=== PATIENT | male | born 1990 | race Caucasian/White ===

== ENCOUNTER 2017-09-08 18:54 | Emergency (ER) | payer MEDICAID ==
[2017-09-08] MEDS ORDERED: Sodium Chloride 0.9% 1,000 ML IV ONE (20:39)
[2017-09-08] MEDS ORDERED: Sucralfate 1 gm/10 ml Oral Susp UD PO STA (20:41)
--- NOTE | 2017-09-08 20:42 | C.PDOC ---
History Of Present Illness 26 year old male presents to the ER with a complaints of epigastric pain since this morning, associated with mild diaphoresis. Patient reports he has a Hx of chronic alcoholism, last drink was last night. Denies fever, chills, or SOB. Chief Complaint (Nursing): Substance Abuse History Per: Patient History/Exam Limitations: no limitations Onset/Duration Of Symptoms: Hrs Current Symptoms Are (Timing): Still Present Suicide/Self Injury Attempted (Context): None Associated Symptoms: denies: Depression, Suicidal Thoughts, Suicidal Plan Involuntary Hold By: None Recent travel outside of the [place]: No Past Medical History Reviewed: Historical Data, Nursing Documentation, Vital Signs Vital Signs: Last Vital Signs Temp 98.3 F 09/08/17 21:25 Pulse 104 H 09/08/17 21:25 Resp 20 09/08/17 21:25 BP 144/95 H 09/08/17 21:25 Pulse Ox 100 09/08/17 21:25 - Medical History PMH: Anxiety Surgical History: Appendectomy, Tonsillectomy Family History: States: Unknown Family Hx - Social History Hx Alcohol Use: Yes Hx Substance Use: No - Immunization History Hx Tetanus Toxoid Vaccination: No Hx Influenza Vaccination: No Hx Pneumococcal Vaccination: No Review Of Systems Constitutional: Positive for: Sweats. Negative for: Fever, Chills Cardiovascular: Negative for: Chest Pain, Palpitations Respiratory: Negative for: Shortness of Breath Gastrointestinal: Positive for: Abdominal Pain. Negative for: Nausea, Vomiting Physical Exam - Physical Exam Appears: Non-toxic, Other (Alert, Conscious) Skin: Normal Color, Warm, Dry Head: Atraumatic, Normacephalic Eye(s): bilateral: Normal Inspection Oral Mucosa: Moist Neck: Normal, Supple Chest: Symmetrical, No Tenderness Cardiovascular: Rhythm Regular Respiratory: Normal Breath Sounds, No Rales, No Rhonchi, No Wheezing Gastrointestinal/Abdominal: Soft, Tenderness (Mild epigastric), No Guarding, No Rebound Neurological/Psych: Oriented x3, Normal Speech, Other (No tremors noted) ED Course And Treatment - Laboratory Results Result Diagrams: 09/08/17 20:53 09/08/17 20:53 O2 Sat by Pulse Oximetry: 99 (Room air) Pulse Ox Interpretation: Normal Progress Note: Blood work and urinalysis ordered. Carafate, pepcid, and IV fluids administered. Disposition Counseled Patient/Family Regarding: Diagnosis - Disposition Referrals: [facility] [Outside] Disposition Time: 22:11 Condition: STABLE Prescriptions: Famotidine [Pepcid] 20 mg PO BID #20 tab Instructions: Abuse of Alcohol (ED), Gastritis (GEN) Forms: [employer] (Bulgarian) - POA Present On Arrival: None - Clinical Impression Clinical Impression: Gastritis, Alcohol abuse - Scribe Statement The provider has reviewed the documentation as recorded by the Scribmisa Montes All medical record entries made by the Jaimeeibmisa were at my direction and personally dictated by me. I have reviewed the chart and agree that the record accurately reflects my personal performance of the history, physical exam, medical decision making, and the department course for this patient. I have also personally directed, reviewed, and agree with the discharge instructions and disposition.
[2017-09-08] MEDS ORDERED: Sodium Chloride 0.9% 1,000 ML ONE (20:57)
[2017-09-08] MEDS ORDERED: Sucralfate 1 gm/10 ml Oral Susp UD ONE (20:57)
[2017-09-08 21:05] LABS: BASO # 0.1 K/uL (0.0-0.2); BASO % 0.7 % (0.0-2.0); EOS # 0.2 K/uL (0.0-0.7); HEMOGLOBIN 15.8 g/dL (12.0-18.0); LYMPH # 1.6 K/uL (1.0-4.3); MEAN CELL VOLUME 94.4 fL (80.0-94.0); MEAN CORPUSCULAR HEMOGLOBIN 32.8 pg (27.0-31.0); MEAN CORPUSCULAR HGB CONC 34.8 g/dL (33.0-37.0); MEAN PLATELET VOLUME 9.3 fL (7.2-11.7); MONO % 11.3 % (0.0-10.0); NEUT # 5.9 K/uL (1.8-7.0); RBC 4.8 Mil/uL (4.40-5.90); RED CELL DISTRIBUTION WIDTH 13.6 % (11.5-14.5); WHITE BLOOD COUNT 8.7 K/uL (4.8-10.8)
[2017-09-08 21:12] LABS: URINE BILIRUBIN NEGATIVE (NEGATIVE); URINE BLOOD NEGATIVE (NEGATIVE); URINE CLARITY Clear (Clear); URINE COLOR Yellow (YELLOW); URINE GLUCOSE (UA) NORMAL (Normal); URINE LEUKOCYTE ESTERASE NEG Leu/uL (Negative); URINE NITRATE NEGATIVE (NEGATIVE); URINE PROTEIN NEGATIVE (NEGATIVE); URINE UROBILINOGEN NORMAL mg/dL (0.2-1.0)
[2017-09-08 21:12] LABS: ALB/GLOB RATIO 1.4 (1.0-2.1); ALBUMIN 4.2 g/dL (3.5-5.0); ALT/SGPT 32 U/L (21-72); AST/SGOT 26 U/L (17-59); BLOOD UREA NITROGEN 12 mg/dL (9-20); GFR AFRICAN-AMERICAN > 60; GFR NON-AFRICAN AMERICAN > 60; LIPASE 88 U/L (23-300)
[2017-09-08 21:29] LABS: BARBITURATES, UR NEGATIVE (NEGATIVE); BENZODIAZEPINES, UR NEGATIVE (NEGATIVE); OPIATES, UR NEGATIVE (NEGATIVE); PHENCYCLIDINE, UR NEGATIVE (NEGATIVE)
[2017-09-08 21:54] VITALS: RESP 20
[2017-09-08 22:42] VITALS: BP 124/86; PULSE 88; TEMP 98.9; O2SAT 100
== END 2017-09-08 22:44 | disposition home or self-care (01) ==
LOC: C.ER 18:54
DX: K29.70 Gastritis, unspecified, without bleeding (principal); F10.10 Alcohol abuse, uncomplicated; Y90.0 Blood alcohol level of less than 20 mg/100 ml
CPT/HCPCS: 80053; 80320; 80324; 80345; 80346; 80349; 80353; 80358; 80361; 81001; 83690; 83992; 85025; 96374; 99284; J7040

== ENCOUNTER 2017-09-12 03:47 | Emergency (ER) | payer MEDICAID ==
[2017-09-12] MEDS ORDERED: Sodium Chloride 0.9% 1,000 ML IV ONE (04:24)
[2017-09-12] MEDS ORDERED: Iohexol 240 (50 ml) PO ONE (04:28)
--- NOTE | 2017-09-12 04:28 | C.PDOC ---
Chief Complaint (Nursing): Male Genitourinary Past Medical History Vital Signs: Last Vital Signs Temp 97.9 F 09/12/17 04:05 Pulse 85 09/12/17 04:05 Resp 18 09/12/17 04:05 BP 106/70 09/12/17 04:05 Pulse Ox 100 09/12/17 04:05 - Medical History PMH: Anxiety Denies: Diabetes, Hepatitis, HIV, HTN, Chronic Kidney Disease, Seizures, Sexually Transmitted Disease Surgical History: Appendectomy, Tonsillectomy Family History: States: Unknown Family Hx - Social History Hx Alcohol Use: Yes Hx Substance Use: No - Immunization History Hx Tetanus Toxoid Vaccination: No Hx Influenza Vaccination: No Hx Pneumococcal Vaccination: No ED Course And Treatment O2 Sat by Pulse Oximetry: 100 Disposition - Disposition
--- NOTE | 2017-09-12 04:29 | C.PDOC ---
History Of Present Illness <Adan Avitia R - Last Filed: 09/12/17 04:26> <KitaponchoTawanda E - Last Filed: 09/12/17 08:42> 26 y/o male brought in by ambulance for abdominal pain. Patient has a history of abdominal pain and was seen 4 days ago for gastritis. Now complaining of right-sided flank pain, radiating to groin. Associated with dysuria. No hematuria. Patient vomiting in the ER. (AvitiaAdan Moore) History Per: Patient History/Exam Limitations: no limitations Onset/Duration Of Symptoms: Hrs Current Symptoms Are (Timing): Still Present <Adan Avitia R - Last Filed: 09/12/17 04:26> <Tawanda Trammell E - Last Filed: 09/12/17 08:42> Time Seen by Provider: 09/12/17 04:20 Chief Complaint (Nursing): Male Genitourinary Past Medical History Reviewed: Historical Data, Nursing Documentation, Vital Signs - Medical History PMH: Anxiety Denies: Diabetes, Hepatitis, HIV, HTN, Chronic Kidney Disease, Seizures, Sexually Transmitted Disease Surgical History: Appendectomy, Tonsillectomy Family History: States: Unknown Family Hx - Social History Hx Alcohol Use: Yes Hx Substance Use: No - Immunization History Hx Tetanus Toxoid Vaccination: No Hx Influenza Vaccination: No Hx Pneumococcal Vaccination: No <Adan Avitia - Last Filed: 09/12/17 04:26> Vital Signs: Last Vital Signs Temp 97.6 F 09/12/17 08:12 Pulse 87 09/12/17 08:12 Resp 18 09/12/17 08:12 BP 128/87 09/12/17 08:12 Pulse Ox 98 09/12/17 08:12 Review Of Systems Constitutional: Negative for: Fever Gastrointestinal: Positive for: Vomiting, Abdominal Pain (right flank) Genitourinary: Positive for: Dysuria, Frequency. Negative for: Hematuria <Adan Avitia - Last Filed: 09/12/17 04:26> Physical Exam - Physical Exam Appears: Non-toxic, No Acute Distress Skin: Normal Color, Warm, Dry Head: Atraumatic, Normacephalic Eye(s): bilateral: Normal Inspection, PERRL, EOMI Oral Mucosa: Moist Neck: Normal ROM, Supple Chest: Symmetrical Cardiovascular: Rhythm Regular, No Murmur Respiratory: Normal Breath Sounds, No Accessory Muscle Use Gastrointestinal/Abdominal: Soft, Tenderness (to right-sided abdomen), No Guarding, No Rebound Back: Normal Inspection Extremity: Bilateral: Atraumatic, Normal Color And Temperature, Normal ROM Neurological/Psych: Oriented x3, Normal Speech <Adan Avitia - Last Filed: 09/12/17 04:26> ED Course And Treatment O2 Sat by Pulse Oximetry: 100 (RA) Pulse Ox Interpretation: Normal <SadiAdan Oscar - Last Filed: 09/12/17 04:26> - Laboratory Results Result Diagrams: 09/12/17 04:44 09/12/17 04:44 Lab Interpretation: No Acute Changes - CT Scan/US CT abd/pelv. Other Rad Studies (CT/US): Read By Radiologist, Radiology Report Reviewed CT/US Interpretation: IMPRESSION: Small calculus at or just medial to right ureteral orifice. Progress Note: Pt was signed out to me by Dr. Avitia at 7am to f/up CT scan. Pt feels better and wants to go home. Reassessment Condition: Improved <Tawanda Trammell E - Last Filed: 09/12/17 08:42> Medical Decision Making <Adan Avitia Oscar - Last Filed: 09/12/17 04:26> <Tawanda Trammell E - Last Filed: 09/12/17 08:42> Medical Decision Makin:[address] Abd/Pelvis, urine, and blood work. Patient given IV fluids, Toradol and Zofran. (Adan Avitia) Disposition <Adan Avitia - Last Filed: 09/12/17 04:26> Counseled Patient/Family Regarding: Studies Performed, Diagnosis, Need For Followup, Rx Given - Disposition Disposition Time: 08:38 <Tawanda Trammell E - Last Filed: 09/12/17 08:42> - Disposition Referrals: Nestor Cuello MD [Staff Provider] - Disposition: HOME/ ROUTINE Condition: IMPROVED Additional Instructions: Drink plenty of fluids. Follow up with a Urologist for further evaluation and treatment. Return to the ER if you develop fever, not tolerating fluids, worsening of symptoms or if you have any other concerns. Prescriptions: Ibuprofen [Motrin Tab] 600 mg PO Q8 PRN #30 tab PRN Reason: Pain, Moderate (4-7) oxyCODONE/Acetaminophen [Percocet 5/325 mg Tab] 1 tab PO QID PRN #15 tab PRN Reason: Pain, Severe (8-10) Tamsulosin [Flomax] 0.4 mg PO HS #5 cap Instructions: Renal Colic (ED) Forms: [employer] (Luxembourgish) - Clinical Impression Clinical Impression: Right ureteral calculus - Scribe Statement The provider has reviewed the documentation as recorded by the Scribe <Adan Avitia - Last Filed: 09/12/17 04:26> <Tawanda Trammell - Last Filed: 09/12/17 08:42> - Scribe Statement Luda Esquivel (Adan Avitia) Provider Attestation: All medical record entries made by the Scribe were at my direction and personally dictated by me. I have reviewed the chart and agree that the record accurately reflects my personal performance of the history, physical exam, medical decision making, and the department course for this patient. I have also personally directed, reviewed, and agree with the discharge instructions and disposition. (Adan Avitia)
[2017-09-12] MEDS ORDERED: Sodium Chloride 0.9% 1,000 ML ONE (04:42)
[2017-09-12] MEDS ORDERED: Iohexol 240 (50 ml) ONE (04:42)
[2017-09-12 04:54] LABS: BASO % 0.3 % (0.0-2.0); EOS # 0.4 K/uL (0.0-0.7); HEMOGLOBIN 15.5 g/dL (12.0-18.0); LYMPH # 3.1 K/uL (1.0-4.3); MEAN CELL VOLUME 94.2 fL (80.0-94.0); MEAN CORPUSCULAR HEMOGLOBIN 32.9 pg (27.0-31.0); MEAN CORPUSCULAR HGB CONC 34.9 g/dL (33.0-37.0); MONO # 0.9 K/uL (0.0-0.8); MONO % 9.1 % (0.0-10.0); NEUT % 53.6 % (50.0-75.0); NRBC % 0.2 % (0.0-2.0); RBC 4.7 Mil/uL (4.40-5.90); RED CELL DISTRIBUTION WIDTH 13.6 % (11.5-14.5); WHITE BLOOD COUNT 9.4 K/uL (4.8-10.8)
[2017-09-12 05:17] LABS: BLOOD UREA NITROGEN 12 mg/dL (9-20); CALCIUM 8.7 mg/dl (8.6-10.4); GFR AFRICAN-AMERICAN > 60; GFR NON-AFRICAN AMERICAN > 60
[2017-09-12 05:18] LABS: ALB/GLOB RATIO 1.4 (1.0-2.1); ALT/SGPT 23 U/L (21-72); AST/SGOT 22 U/L (17-59); LIPASE 67 U/L (23-300)
[2017-09-12 06:19] VITALS: TEMP 97.6; O2SAT 98
[2017-09-12] MEDS ORDERED: Iodixanol 320 MG/ML 100 ML BOTTLE IV ONE (06:35)
--- NOTE | 2017-09-12 07:46 | CT ---
EXAM: CT Abdomen and Pelvis With Intravenous Contrast EXAM DATE/TIME: 09/12/2017 4:27 AM CLINICAL HISTORY: 26 years old, male; Pain; Other: Right sided; Patient HX: Abd pain; Additional info: Right sided abd pain TECHNIQUE: Axial computed tomography images of the abdomen and pelvis with intravenous contrast. All CT scans at this facility use one or more dose reduction techniques, viz.: automated exposure control; ma/kV adjustment per patient size (including targeted exams where dose is matched to indication; i.e. head); or iterative reconstruction technique. Coronal and sagittal reformatted images were created and reviewed. CONTRAST: 100 mL of VISIPAQUE 320 administered intravenously. COMPARISON: No relevant prior studies available. FINDINGS: Lower thorax: No acute findings. ABDOMEN: Liver: Unremarkable. No mass. Gallbladder and bile ducts: Unremarkable. No calcified stones. No ductal dilation. Pancreas: Unremarkable. No mass. No ductal dilation. Spleen: Unremarkable. No splenomegaly. Adrenals: Unremarkable. No mass. Kidneys and ureters: No hydronephrosis. Symmetrical nephrograms. 1 cm right upper pole cyst. Stomach and bowel: Unremarkable. No dilatation of small or large bowel. No mucosal thickening. Appendix: Normal. PELVIS: Bladder: 3 mm calculus at or just medial to right ureteral orifice. No mass. Reproductive: Unremarkable as visualized. ABDOMEN and PELVIS: Intraperitoneal space: Unremarkable. No free air. No significant fluid collection. Bones/joints: No acute fracture. Soft tissues: Unremarkable. Vasculature: Unremarkable. No abdominal aortic aneurysm. Lymph nodes: No enlarged lymph nodes. IMPRESSION: Small calculus at or just medial to right ureteral orifice.
[2017-09-12 08:12] LABS: URINE BILIRUBIN NEGATIVE (NEGATIVE); URINE BLOOD NEGATIVE (NEGATIVE); URINE CLARITY Clear (Clear); URINE COLOR Yellow (YELLOW); URINE GLUCOSE (UA) NORMAL (Normal); URINE LEUKOCYTE ESTERASE NEG Leu/uL (Negative); URINE NITRATE NEGATIVE (NEGATIVE); URINE PROTEIN NEGATIVE (NEGATIVE); URINE UROBILINOGEN NORMAL mg/dL (0.2-1.0)
[2017-09-12 08:13] VITALS: BP 128/87; PULSE 87; RESP 18
== END 2017-09-12 09:20 | disposition home or self-care (01) ==
LOC: C.ER 03:47
DX: N20.1 Calculus of ureter (principal)
CPT/HCPCS: 74177; 80053; 80320; 81001; 83690; 85025; 87086; 96361; 96374; 96375; 99285; J1170; J1885; J2405; J2765; J7040; Q9966; Q9967

== ENCOUNTER 2018-04-01 12:14 | Emergency (ER) | payer MEDICAID ==
[2018-04-01 12:29] VITALS: BP 103/69; PULSE 96; RESP 20; TEMP 98.9; O2SAT 95
[2018-04-01] MEDS ORDERED: Tetanus/Diphtheria Toxoids 0.5 ml Syringe IM ONE (12:47)
--- NOTE | 2018-04-01 14:48 | C.PDOC ---
History Of Present Illness 27 y/o male present to the ED complaining of diffuse pruritic body rash that began earlier today after eating sour gummy worms. According to the patient, he ate crab last night but did not experience any sort of reaction. He notes he did not have a rash when he woke up this morning. The patient denies any wheezing or stridor. Time Seen by Provider: 04/01/18 12:29 Chief Complaint (Nursing): Allergic Reaction History Per: Patient History/Exam Limitations: no limitations Onset/Duration Of Symptoms: Hrs Current Symptoms Are (Timing): Still Present Context: Food Associated Symptoms: Skin Rash Recent travel outside of the [place]: No Past Medical History Reviewed: Historical Data, Nursing Documentation, Vital Signs Vital Signs: Last Vital Signs Temp 98.9 F 04/01/18 12:28 Pulse 96 H 04/01/18 12:28 Resp 20 04/01/18 12:28 BP 103/69 04/01/18 12:28 Pulse Ox 95 04/01/18 14:51 - Medical History PMH: Anxiety, Kidney Stones Denies: Diabetes, Hepatitis, HIV, HTN, Chronic Kidney Disease, Seizures, Sexually Transmitted Disease Surgical History: Appendectomy, Tonsillectomy (@age 11) Family History: States: Unknown Family Hx - Social History Hx Alcohol Use: Yes Hx Substance Use: No - Immunization History Hx Tetanus Toxoid Vaccination: No Hx Influenza Vaccination: No Hx Pneumococcal Vaccination: No Review Of Systems Except As Marked, All Systems Reviewed And Found Negative. Constitutional: Negative for: Fever Respiratory: Negative for: Shortness of Breath, Wheezing Skin: Positive for: Rash Physical Exam - Physical Exam Appears: Well, Non-toxic, No Acute Distress Skin: Normal Color, Warm, Rash (diffuse, pruritic body rash) Head: Atraumatic, Normacephalic Eye(s): bilateral: PERRL, EOMI Ear(s): Bilateral: Normal Oral Mucosa: Moist Throat: No Erythema Neck: Normal ROM, Supple Chest: Symmetrical Cardiovascular: Rhythm Regular, No Murmur Respiratory: Normal Breath Sounds, No Accessory Muscle Use, No Rales, No Rhonchi , No Stridor, No Wheezing Pulses: Left Radial: Normal, Right Radial: Normal Neurological/Psych: Oriented x3, Normal Speech, Other (no focal deficits) ED Course And Treatment O2 Sat by Pulse Oximetry: 95 (RA) Pulse Ox Interpretation: Normal Medical Decision Making Medical Decision Making: Impression: 27 y/o male with diffuse pruritic body rash Plan: -Decadron Inj 10 mg Disposition - [facility] - Disposition: HOME/ ROUTINE Disposition Time: 12:30 Condition: GOOD Additional Instructions: ARTURO MCCOY, thank you for letting us take care of you today. Your provider was Pedro Pablo Mancini DO and you were treated for ALLERGIC REACTION. The emergency medical care you received today was directed at your acute symptoms. If you were prescribed any medication, please fill it and take as directed. It may take several days for your symptoms to resolve. Return to the Emergency Department if your symptoms worsen, do not improve, or if you have any other problems. Please contact your doctor or call one of the physicians/clinics you have been referred to that are listed on the Patient Visit Information form that is included in your discharge packet. Bring any paperwork you were given at discharge with you along with any medications you are taking to your follow up visit. Our treatment cannot replace ongoing medical care by a primary care provider outside of the emergency department. Thank you for allowing the [facility] team to be part of your care today. Follow up with your primary care doctor in 2-3 days for re-evaluation and further management. Prescriptions: predniSONE [Prednisone] 40 mg PO DAILY #6 tab Instructions: Food Allergy Forms: [employer] (Albanian) - Clinical Impression Clinical Impression: Food allergy - PA / ASSIGNMENT AGENT / Resident Statement MD/DO has reviewed & agrees with the documentation as recorded. - Scribe Statement The provider has reviewed the documentation as recorded by the Scribe (Stacy Pa) Provider Attestation: All medical record entries made by the Scribe were at my direction and personally dictated by me. I have reviewed the chart and agree that the record accurately reflects my personal performance of the history, physical exam, medical decision making, and the department course for this patient. I have also personally directed, reviewed, and agree with the discharge instructions and disposition.
== END 2018-04-01 12:50 | disposition home or self-care (01) ==
LOC: C.ER 12:14
DX: L27.2 Dermatitis due to ingested food (principal)
CPT/HCPCS: 96372; 99283; J1100